=== PATIENT | female | born 1990 | race Hispanic/Latino ===

== ENCOUNTER 2021-05-29 13:26 | Emergency (ER) | payer SELFPAY ==
[2021-05-29 13:43] VITALS: BP 110/73
--- NOTE | 2021-05-29 15:03 | Cat Scan Report ---
CT head/brain wo con INDICATION: Trauma from a fall, now with a slight headache.. TECHNIQUE: Routine CT head without contrast. All CT scans at this location are performed using CT dose reduction for ALARA by means of automated exposure control. COMPARISON: None. FINDINGS: BRAIN / INTRACRANIAL CONTENTS: No acute hemorrhage, brain edema, mass effect, or hydrocephalus. Cailin l toribio-white differentiation. Small arachnoid cyst seen in the left posterior cranial fossa. CALVARIUM/SKULL BASE/CRANIOCERVICAL JUNCTION: No evidence of fracture. ORBITS: No significant abnormality of visualized orbits. SINUSES / MASTOIDS: No significant abnormality of visualized sinuses and mastoid air cells. ADDITIONAL FINDINGS: None. IMPRESSION: 1. No acute post-traumatic intracranial abnormality. Signer Name: Solo Ortiz MD Signed: 05/29/2021 2:58 PM Workstation Name: [id number]
--- NOTE | 2021-05-29 15:04 | Cat Scan Report ---
CT MAXILLOFACIAL WITHOUT CONTRAST INDICATION: Trauma from a fall , now with a slight headache.. TECHNIQUE: All CT scans at this location are performed using CT dose reduction for ALARA by means of automated e xposure control. COMPARISON: None available. FINDINGS: FACIAL BONES: There is a nondisplaced left nasal fracture. PARANASAL SINUSES: No significant abnormality. ORBITS: No significant abnormality. VISUALIZED INTRACRANIAL STRUCTURES: No significant abnormality. ADDITIONAL FINDINGS: There is mild subcutaneous edema around the left eye. IMPRESSION: 1. Nondisplaced age-indeterminate left nasal fracture. Signer Name: Solo Ortiz MD Signed: 05/29/2021 3:00 PM Workstation Name: [id number]
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
[2021-05-29 16:04] LABS: Alanine Aminotransferase 29 units/L (7-56); Albumin 4.6 g/dL (3.9-5); Blood Urea Nitrogen 11 mg/dL (7-17); Calcium 9.6 mg/dL (8.4-10.2); Hemolysis Index 7
[2021-05-29 16:06] LABS: Basophils % (Auto) 0.7 % (0.0-1.8); Eosinophils % (Auto) 0.3 % (0.0-4.3); Hematocrit 38.8 % (30.3-42.9); Hemoglobin 13.4 gm/dl (10.1-14.3); Lymphocytes # (Auto) 1.4 K/mm3 (1.2-5.4); Lymphocytes % (Auto) 24.7 % (13.4-35.0); Mean Corpuscular HGB Conc 35 % (30-34); Mean Corpuscular Volume 115 fl (79-97); Monocytes # (Auto) 0.5 K/mm3 (0.0-0.8); Monocytes % (Auto) 8.9 % (0.0-7.3); Platelet Count 232 K/mm3 (140-440); Red Blood Count 3.36 M/mm3 (3.65-5.03); Red Cell Distribution Width 14.8 % (13.2-15.2)
[2021-05-29 16:06] LABS: Amphetamine Screen,Urine Negative; Benzodiazepines Screen,Urine Negative; Cocaine Screen,Urine Negative; Methadone Screen,Urine Negative; Opiate Screen,Urine Negative
[2021-05-29 16:11] LABS: BUN/Creatinine Ratio 22
[2021-05-29 16:28] LABS: Cannabinoid Screen,Urine Positive
== END 2021-05-29 17:36 | disposition home or self-care (01) ==
LOC: ED 13:26
DX: S00.83XA Contusion of other part of head, initial encounter (principal); R42 Dizziness and giddiness; S05.92XA Unspecified injury of left eye and orbit, initial encounter; W10.9XXA Fall (on) (from) unspecified stairs and steps, initial encounter; Y93.89 Activity, other specified; Y92.89 Other specified places as the place of occurrence of the external cause; Y99.8 Other external cause status
CPT/HCPCS: 36415; 70450; 70486; 80053; 80307; 80320; 84702; 85025; 99284; G0480